=== PATIENT | female | born 1995 | race Caucasian/White ===

== ENCOUNTER 2018-10-02 15:54 | Emergency (ER) | payer OTHER ==
[~2018-10-02] VITALS: Ht 160 cm; Wt 145.1 kg
[2018-10-02 16:11] VITALS: Ht 160 cm; Wt 145.1 kg
[2018-10-02 18:24] VITALS: BP 143/88
== END 2018-10-02 19:02 | disposition home or self-care (01) ==
LOC: ED 15:54
DX: S82.891A Other fracture of right lower leg, initial encounter for closed fracture (principal); J45.909 Unspecified asthma, uncomplicated; F32.9 Major depressive disorder, single episode, unspecified; X58.XXXA Exposure to other specified factors, initial encounter; Y93.89 Activity, other specified; Y92.89 Other specified places as the place of occurrence of the external cause; Y99.8 Other external cause status
CPT/HCPCS: Q0092

== ENCOUNTER 2019-01-18 04:34 | Emergency (ER) | payer OTHER ==
[~2019-01-18] VITALS: Ht 172.7 cm; Wt 144.7 kg
[2019-01-18 05:13] VITALS: BP 151/107; Ht 172.7 cm; Wt 144.7 kg
== END 2019-01-18 07:15 | disposition home or self-care (01) ==
LOC: ED 04:34
DX: H60.92 Unspecified otitis externa, left ear (principal); H66.92 Otitis media, unspecified, left ear; E66.9 Obesity, unspecified; J45.909 Unspecified asthma, uncomplicated; D64.9 Anemia, unspecified; F32.9 Major depressive disorder, single episode, unspecified; Z68.42 Body mass index [BMI] 45.0-49.9, adult